=== PATIENT | female | born 1980 | race Caucasian/White ===

== ENCOUNTER → 2017-07-17 | Emergency (ER) | payer OTHER ==
[~2017-07-17] VITALS: Ht 149.9 cm; Wt 68.0 kg
[~2017-07-17] MED LIST: KETO10TA2 PO; PREDNISONE5 M1 PO; SKELAXIN800 MG PO; TAMS0.4C PO
== END | disposition home or self-care (01) ==
LOC: ER 19:18
DX: R10.32 Left lower quadrant pain (principal)

== ENCOUNTER 2017-07-20 10:47 | Emergency (ER) | payer OTHER ==
[~2017-07-20] VITALS: Ht 149.9 cm; Wt 68.0 kg
[~2017-07-20 10:47] MED LIST changes: -PREDNISONE5 M1 PO; -SKELAXIN800 MG PO
[2017-07-20] MEDS ORDERED: PREDNISONE5 M1 PO (13:50)
[2017-07-20] MEDS ORDERED: KETO10TA2 PO (13:50)
[2017-07-20] MEDS ORDERED: SKELAXIN800 MG PO (13:50)
== END 2017-07-20 14:10 | disposition home or self-care (01) ==
LOC: ER 10:47
DX: M54.89 Other dorsalgia (principal)

== ENCOUNTER 2017-10-23 10:13 | Day surgery (SDC) | payer OTHER ==
[~2017-10-23 10:13] MED LIST changes: +PREDNISONE5 M1 PO; +SKELAXIN800 MG PO
== END 2017-10-23 16:10 | disposition home or self-care (01) ==
LOC: AMB-ENDOS 10:13
DX: K57.30 Diverticulosis of large intestine without perforation or abscess without bleeding (principal); Z12.11 Encounter for screening for malignant neoplasm of colon

== ENCOUNTER 2017-11-01 07:36 | Outpatient (CLI) | payer OTHER | END 2017-11-01 08:00 | disposition home or self-care (01) | LOC: NUCLEAR 07:36 | DX: K57.30 Diverticulosis of large intestine without perforation or abscess without bleeding (principal); R19.7 Diarrhea, unspecified; R10.32 Left lower quadrant pain | CPT/HCPCS: 78227; A9537; J2805 ==

== ENCOUNTER 2018-03-04 16:48 | Emergency (ER) | payer OTHER ==
[~2018-03-04] VITALS: Ht 149.9 cm; Wt 68.0 kg
== END 2018-03-04 19:54 | disposition home or self-care (01) ==
LOC: ER 16:48
DX: H10.31 Unspecified acute conjunctivitis, right eye (principal)

== ENCOUNTER → 2018-03-17 | Emergency (ER) | payer OTHER ==
[~2018-03-17] VITALS: Ht 149.9 cm; Wt 68.0 kg
[~2018-03-17] MED LIST changes: +URIN D.S. TABL1 EACH PO
== END | disposition home or self-care (01) ==
LOC: ER 20:08
DX: R82.99 Other abnormal findings in urine (principal); R10.31 Right lower quadrant pain

== ENCOUNTER → 2022-04-15 | Emergency (ER) | payer OTHER ==
[~2022-04-15] VITALS: Ht 149.9 cm; Wt 70.3 kg
== END | disposition home or self-care (01) ==
LOC: ER 13:35
DX: M54.50 Low back pain, unspecified (principal)

== ENCOUNTER 2022-06-30 11:47 | Emergency (ER) | payer OTHER ==
[~2022-06-30] VITALS: Ht 124.5 cm; Wt 70.3 kg
== END 2022-06-30 16:36 | disposition home or self-care (01) ==
LOC: ER 11:47
DX: J40 Bronchitis, not specified as acute or chronic (principal); Z20.822 Contact with and (suspected) exposure to COVID-19

== ENCOUNTER 2022-07-06 18:21 | Emergency (ER) | payer OTHER ==
[~2022-07-06] VITALS: Ht 149.9 cm; Wt 70.3 kg
== END 2022-07-07 10:58 | disposition home or self-care (01) ==
LOC: ER 18:21
DX: R06.02 Shortness of breath (principal); R05.9 Cough, unspecified; Z20.822 Contact with and (suspected) exposure to COVID-19

== ENCOUNTER 2022-07-16 04:03 | Emergency (ER) | payer OTHER ==
[~2022-07-16] VITALS: Ht 149.9 cm; Wt 70.3 kg
== END 2022-07-16 12:50 | disposition home or self-care (01) ==
LOC: ER 04:03
DX: J45.901 Unspecified asthma with (acute) exacerbation (principal); Z20.822 Contact with and (suspected) exposure to COVID-19

== ENCOUNTER 2022-11-01 13:47 | Emergency (ER) | payer OTHER ==
[~2022-11-01] VITALS: Ht 157.5 cm; Wt 90.7 kg
[2022-11-01] MEDS ORDERED: METFORMIN HCL500 MG (15:19)
== END 2022-11-01 19:54 | disposition home or self-care (01) ==
LOC: ER 13:47
DX: J06.9 Acute upper respiratory infection, unspecified (principal); Z20.822 Contact with and (suspected) exposure to COVID-19

== ENCOUNTER 2024-06-26 03:34 | Emergency (ER) | payer OTHER ==
[~2024-06-26] VITALS: Ht 149.9 cm; Wt 69.9 kg
[~2024-06-26 03:34] MED LIST changes: +METFORMIN HCL500 MG
[2024-06-26 03:45] VITALS: BP 146/83; O2SAT 99
[2024-06-26] MEDS ORDERED: KETOROLAC TROMETHAMINE 60 MG VIAL IM STA (05:20)
[2024-06-26] MEDS ORDERED: KETOROLAC TROMETHAMINE 60 MG VIAL IM ONE (05:34)
[2024-06-26] MEDS ORDERED: KETO10TA2 PO (07:24)
== END 2024-06-26 07:28 ==
LOC: ER 03:34
DX: S70.12XA Contusion of left thigh, initial encounter (principal); S80.02XA Contusion of left knee, initial encounter; S70.02XA Contusion of left hip, initial encounter; W18.39XA Other fall on same level, initial encounter; Y93.89 Activity, other specified; Y92.018 Other place in single-family (private) house as the place of occurrence of the external cause; Y99.9 Unspecified external cause status; E11.9 Type 2 diabetes mellitus without complications; Z79.84 Long term (current) use of oral hypoglycemic drugs

== ENCOUNTER 2025-03-27 18:50 | Emergency (ER) | payer OTHER ==
[~2025-03-27] VITALS: Ht 149.9 cm; Wt 68.0 kg
[2025-03-27 21:03] VITALS: BP 116/82; O2SAT 97
[2025-03-27] MEDS ORDERED: CARBAMIDE PEROXIDE OT ONE (21:45)
[2025-03-27] MEDS ORDERED: [UNRECOGNIZED DRUG - OTHER] OT ONE (21:45)
[2025-03-27] MEDS ORDERED: DEBROX SWIMMER'30 ML OT (22:05)
== END 2025-03-28 01:02 | disposition home or self-care (01) ==
LOC: ER 18:51
DX: H61.22 Impacted cerumen, left ear (principal); J00 Acute nasopharyngitis [common cold]